=== PATIENT | male | born 1965 | race Caucasian/White ===

== ENCOUNTER 2023-03-11 08:16 | Emergency (ER) | payer BC ==
[2023-03-11] MEDS ORDERED: EPINEPHrine 1 MG/10 ML Abboject SYRINGE ONE (13:16)
== END 2023-03-11 08:31 | disposition expired ==
LOC: MADERS 08:16
DX: I46.9 Cardiac arrest, cause unspecified (principal); E11.9 Type 2 diabetes mellitus without complications
CPT/HCPCS: 92950; J0171